=== PATIENT | female | born 1960 | race African-American/Black ===

== ENCOUNTER 2017-04-18 17:55 | Inpatient (IN) | payer BC, OTHER ==
[~2017-04-18] VITALS: Ht 167.6 cm; Wt 77.6 kg
[2017-04-18] VITALS (7 sets, daily range): BP systolic 105–148; BP diastolic 57–97
[2017-04-18] MEDS ORDERED: GuaiFENesin/D-METHORPHAN [SUGAR-FREE] 200-20MG/10 ML SYRUP UDCUP PO PRN (18:45)
[2017-04-18] MEDS ORDERED: HydrOXYzine PAMOATE 50 MG CAPSULE PO PRN (18:45)
[2017-04-18] MEDS ORDERED: MAGNESIUM HYDROXIDE SUSPENSION 30 ML UDCUP PO PRN (18:45)
[2017-04-18] MEDS ORDERED: DIAZEPAM 10 MG TABLET PO PRN (18:45)
[2017-04-18] MEDS ORDERED: ACETAMINOPHEN 325 MG TABLET PO PRN (18:45)
[2017-04-18] MEDS ORDERED: LOPERAMIDE HCL 2 MG CAPSULE PO PRN (18:45)
[2017-04-18] MEDS ORDERED: PROMETHAZINE HCL 25 MG TABLET PO PRN (18:45)
[2017-04-18] MEDS ORDERED: OLANZapine 5 MG RAPDIS TABLET PO PRN (18:45)
[2017-04-18] MEDS ORDERED: CYANOCOBALAMIN 1,000 MCG/ML VIAL IM ONE (18:45)
[2017-04-18] MEDS ORDERED: MAG HYDROX/AL HYDROX/SIMETH ES 30 ML SUSPENSION UDCUP PO PRN (18:45)
[2017-04-18] MEDS: ZOLPIDEM TARTRATE 10 MG TABLET PO PRN (20:58)
[2017-04-18] MEDS: THIAMINE HCL 100 MG TABLET PO SCH (20:58)
[2017-04-18] MEDS ORDERED: OLANZapine 10 MG RAPDIS TABLET PO SCH (21:00)
[2017-04-19] VITALS (9 sets, daily range): BP systolic 108–128; BP diastolic 60–88
[2017-04-19] MEDS ORDERED: DIAZEPAM 10 MG TABLET PO PRN (07:00)
[2017-04-19 08:20] LABS: BASOPHILS % (AUTO) 1.7 % (0.0-2.0); EOSINOPHILS % (AUTO) 4.9 % (1.0-6.0); HEMATOCRIT 39.5 % (36-46); HEMOGLOBIN 13.6 g/dL (12.0-16.0); LYMPHOCYTES # (AUTO) 1.3 K/uL (1.0-4.8); LYMPHOCYTES % (AUTO) 37.5 % (22.0-44.0); MEAN CORPUSCULAR HEMOGLOBIN 29.9 pg (26.0-34.0); MEAN CORPUSCULAR HGB CONC 34.3 G/dL (31.0-37.0); MEAN CORPUSCULAR VOLUME 87 fL (80-100); MONOCYTES # (AUTO) 0.4 K/uL (0.1-1.0); MONOCYTES % (AUTO) 10.7 % (2.0-9.0); NEUTROPHILS # (AUTO) 1.6 K/uL (1.8-7.7); NEUTROPHILS % (AUTO) 45.2 % (40.0-70.0); PLATELET COUNT (AUTO) 211 K/uL (150-450); RED BLOOD CELL COUNT(AUTO) 4.54 MIL/uL (4.00-5.20); RED CELL DISTRIBUTION WIDTH 14.4 % (11.5-14.5); WHITE BLOOD COUNT (AUTO) 3.6 K/uL (4.5-11.0)
[2017-04-19] MEDS: DIAZEPAM 10 MG TABLET PO SCH ×4 (08:35→20:35)
[2017-04-19] MEDS: MULTIVITAMINS WITH MINERALS, THERAPEUTIC TABLET PO SCH (08:35)
[2017-04-19] MEDS: THIAMINE HCL 100 MG TABLET PO SCH ×2 (08:35→15:59)
[2017-04-19] MEDS: FOLIC ACID 1 MG TABLET PO SCH (08:35)
[2017-04-19 08:39] LABS: HEMOGLOBIN A1C 5.5 % (4.5-6.2)
[2017-04-19] MEDS ORDERED: FLUoxetine HCL 10 MG CAPSULE PO SCH (09:00)
[2017-04-19 09:23] LABS: ALANINE AMINOTRANSFERASE 21 U/L (12-78); ALBUMIN 3.5 g/dL (3.4-5.0); ANION GAP 8 mmol/L (8-16); ASPARTATE AMINOTRANSFERASE 14 U/L (15-37); BILIRUBIN,TOTAL 0.3 mg/dL (0.1-1.0); CALCIUM, TOTAL 8.8 mg/dL (8.8-10.5); CARBON DIOXIDE 26 mmol/L (22-29); CHLORIDE 107 mmol/L (98-107); CREATININE 0.85 mg/dL (0.60-1.30); GLOMERULAR FILTR. RATE CALC > 60 mL/min (>60); POTASSIUM 4.1 mmol/L (3.5-5.1); SODIUM SERUM 141 mmol/L (136-145); THYROID STIMULATING HORMONE 0.64 uIU/mL (0.36-3.74); TOTAL PROTEIN, SERUM 6.3 g/dL (6.4-8.2); UREA NITROGEN, BLOOD 14 mg/dL (7-18)
[2017-04-19] MEDS: GABAPENTIN 300 MG CAPSULE PO SCH ×2 (15:59→20:35)
[2017-04-20 06:00] VITALS: BP 138/81
[2017-04-20] MEDS: DIAZEPAM 10 MG TABLET PO SCH ×5 (06:35→20:04)
[2017-04-20 08:25] VITALS: BP 131/71
[2017-04-20] MEDS: THIAMINE HCL 100 MG TABLET PO SCH ×2 (09:18→16:13)
[2017-04-20] MEDS: GABAPENTIN 300 MG CAPSULE PO SCH ×4 (09:19→20:04)
[2017-04-20] MEDS: MULTIVITAMINS WITH MINERALS, THERAPEUTIC TABLET PO SCH (09:19)
[2017-04-20] MEDS: FOLIC ACID 1 MG TABLET PO SCH (09:19)
[2017-04-20] MEDS: PARoxetine HCL 20 MG TABLET PO SCH (09:19)
[2017-04-20] MEDS: NALTREXONE HCL 50 MG TABLET PO SCH (09:19)
[2017-04-20 16:19] VITALS: BP 131/74
[2017-04-20] MEDS: TUBERCULIN, PURIFIED PROTEIN DERIVATIVE 5 TU/0.1 ML SYG ID ONE (17:55)
[2017-04-20] MEDS: ZOLPIDEM TARTRATE 10 MG TABLET PO PRN (22:08)
[2017-04-21] MEDS ORDERED: DIAZEPAM 5 MG TABLET PO PRN (07:00)
[2017-04-21 07:25] VITALS: BP_SYST 128
[2017-04-21 07:28] VITALS: BP 128/84
[2017-04-21 08:20] VITALS: BP 121/71
[2017-04-21] MEDS: PARoxetine HCL 20 MG TABLET PO SCH (08:43)
[2017-04-21] MEDS: NALTREXONE HCL 50 MG TABLET PO SCH (08:43)
[2017-04-21] MEDS: DIAZEPAM 5 MG TABLET PO SCH ×4 (08:43→20:47)
[2017-04-21] MEDS: GABAPENTIN 300 MG CAPSULE PO SCH ×4 (08:43→20:34)
[2017-04-21] MEDS: THIAMINE HCL 100 MG TABLET PO SCH ×2 (08:43→16:11)
[2017-04-21] MEDS: MULTIVITAMINS WITH MINERALS, THERAPEUTIC TABLET PO SCH (08:43)
[2017-04-21] MEDS: FOLIC ACID 1 MG TABLET PO SCH (08:43)
[2017-04-21 13:16] VITALS: BP 125/73
[2017-04-21 16:17] VITALS: BP 116/85
[2017-04-21 16:20] VITALS: BP 116/85
[2017-04-21] MEDS ORDERED: LOPERAMIDE HCL 2 MG CAPSULE PO PRN (18:45)
[2017-04-22] VITALS (7 sets, daily range): BP systolic 110–127; BP diastolic 61–75
[2017-04-22] MEDS ORDERED: DIAZEPAM 5 MG TABLET PO PRN (07:00)
[2017-04-22] MEDS: NALTREXONE HCL 50 MG TABLET PO SCH (08:41)
[2017-04-22] MEDS: FOLIC ACID 1 MG TABLET PO SCH (08:41)
[2017-04-22] MEDS: PARoxetine HCL 20 MG TABLET PO SCH (08:42)
[2017-04-22] MEDS: MULTIVITAMINS WITH MINERALS, THERAPEUTIC TABLET PO SCH (08:42)
[2017-04-22] MEDS: GABAPENTIN 300 MG CAPSULE PO SCH ×4 (08:42→20:34)
[2017-04-22] MEDS: THIAMINE HCL 100 MG TABLET PO SCH ×2 (08:42→16:02)
[2017-04-22] MEDS: ZOLPIDEM TARTRATE 10 MG TABLET PO PRN (20:34)
[2017-04-23 06:54] VITALS: BP 115/73
[2017-04-23 07:12] VITALS: BP 115/73
[2017-04-23 08:10] VITALS: BP 117/76
[2017-04-23] MEDS: PARoxetine HCL 20 MG TABLET PO SCH (09:09)
[2017-04-23] MEDS: MULTIVITAMINS WITH MINERALS, THERAPEUTIC TABLET PO SCH (09:09)
[2017-04-23] MEDS: FOLIC ACID 1 MG TABLET PO SCH (09:09)
[2017-04-23] MEDS: NALTREXONE HCL 50 MG TABLET PO SCH (09:09)
[2017-04-23] MEDS: THIAMINE HCL 100 MG TABLET PO SCH ×2 (09:09→16:30)
[2017-04-23] MEDS: GABAPENTIN 300 MG CAPSULE PO SCH ×3 (09:09→16:30)
[2017-04-23 09:44] VITALS: BP 117/76
[2017-04-23] MEDS ORDERED: GABA-531 PO (14:48)
[2017-04-23] MEDS ORDERED: PARO20TA24 PO (14:48)
[2017-04-23] MEDS ORDERED: NALT50TA6 PO (14:48)
== END 2017-04-23 18:55 | disposition home or self-care (01) | DRG 885 ==
LOC: B2S 18:48
PROVIDERS: ADMIT Psychiatry & Neurology Psychiatry; ATTEND Psychiatry & Neurology Psychiatry
DX: F33.2 Major depressive disorder, recurrent severe without psychotic features (principal); R45.851 Suicidal ideations; Z91.14 Patient's other noncompliance with medication regimen; F41.9 Anxiety disorder, unspecified; F10.10 Alcohol abuse, uncomplicated; F12.10 Cannabis abuse, uncomplicated; G47.00 Insomnia, unspecified; Z79.899 Other long term (current) drug therapy; Z85.3 Personal history of malignant neoplasm of breast; Z91.19 Patient's noncompliance with other medical treatment and regimen; Z90.13 Acquired absence of bilateral breasts and nipples; Z90.721 Acquired absence of ovaries, unilateral; Z85.43 Personal history of malignant neoplasm of ovary; Z91.5 Personal history of self-harm
CPT/HCPCS: 83036; 84439; 84443; 86592; J3420